=== PATIENT | female | born 1970 | race Caucasian/White ===

== ENCOUNTER → 2020-09-27 | Outpatient (CLI) | payer OTHER ==
[2020-09-27 12:12] LABS: HEMOGLOBIN 10.1 gm/dl (12.3-15.3); RED BLOOD COUNT 4.01 M/UL (4.00-5.10); WHITE BLOOD COUNT 10.5 K/UL (4.5-11.0)
[2020-09-27 12:48] LABS: BUN/CREATININE RATIO 16 (0-10)
[2020-09-28 09:14] LABS: VITAMIN D, 25-HYDROXY 49.1 ng/mL (30.0-100.0)
[2020-09-28 13:14] LABS: RHEUMATOID ARTHRITIS FACTOR <10.0 IU/mL (0.0-13.9)
[2020-09-29 00:09] LABS: CCP ANTIBODIES IGG/IGA 7 units (0-19)
== END ==
LOC: LAB 11:37
PROVIDERS: Nurse Practitioner Family
DX: M25.50 Pain in unspecified joint (principal); D89.9 Disorder involving the immune mechanism, unspecified; R76.8 Other specified abnormal immunological findings in serum
CPT/HCPCS: 36415; 80053; 82728; 83520; 84439; 84443; 85025; 85652; 86140; 86200; 86431